=== PATIENT | female | born 1990 | race African-American/Black ===

== ENCOUNTER 2018-08-01 20:03 | Emergency (ER) | payer OTHER ==
[2018-08-01 20:27] VITALS: BP 123/61; PULSE 81; TEMP 98.1; BMI 27.4
--- NOTE | 2018-08-01 20:55 | PDOC ---
History of Present Illness - General Chief Complaint: Cold Symptoms Stated Complaint: COLD SYMPTOMS Time Seen by Provider: 08/01/18 20:29 History Source: Patient Exam Limitations: No Limitations - History of Present Illness Initial Comments: 08/01/18 20:51 27-year-old female presents to ED with complaints of right ear pain, sore throat , and nasal congestion for the past week. Patient states has been taking Claritin denies fever, chills, chest pain or shortness of breath. Patient denies smoking history and recent sick contacts. Timing/Duration: reports: week Severity: reports: mild Possible Cause: Yes: no prior episodes Associated Symptoms: reports: earache, nasal congestion, sore throat Past History - Travel Traveled outside of the country in the last 30 days: No - Past Medical History Allergies/Adverse Reactions: Allergies Allergy/AdvReac Type Severity Reaction Status Date / Time No Known Allergies Allergy Verified 08/01/18 20:27 Home Medications: Ambulatory Orders NK [No Known Home Medication] 08/01/18 Asthma: No Cancer: No Cardiac Disorders: No Diabetes: No HTN: No Seizures: No Thyroid Disease: No - Reproductive History (#): 2 Para: 0 Therapeutic (s) & number: Yes - Suicide/Smoking/Psychosocial Hx Smoking History: Never smoked Have you smoked in the past 12 months: No Information on smoking cessation initiated: No Hx Alcohol Use: No Drug/Substance Use Hx: No Hx Substance Use Treatment: No Patient Lives Alone: No Lives with/in: spouse/SO Review of Systems - Review of Systems Able to Perform ROS?: Yes Constitutional: No: Symptoms Reported HEENTM: Yes: Ear Pain, Nose Congestion, Throat Pain Respiratory: No: Symptoms reported Cardiac (ROS): No: Symptoms Reported ABD/GI: No: Symptoms Reported Musculoskeletal: No: Symptoms Reported Integumentary: No: Symptoms Reported Neurological: No: Symptoms reported *Physical Exam - Vital Signs Last Vital Signs Temp Pulse Resp BP Pulse Ox 98.1 F 81 16 123/61 100 08/01/18 20:25 08/01/18 20:25 08/01/18 20:25 08/01/18 20:25 08/01/18 20:25 - Physical Exam General Appearance: Yes: Nourished, Appropriately Dressed. No: Apparent Distress HEENT: positive: EOMI, FRANKI, Pharynx Normal, TM Erythema (right). negative: Pale Conjunctivae Neck: positive: Supple. negative: Lymphadenopathy (R), Lymphadenopathy (L) Respiratory/Chest: positive: Lungs Clear, Normal Breath Sounds. negative: Respiratory Distress, Accessory Muscle Use Cardiovascular: positive: Regular Rhythm, Regular Rate. negative: Murmur Integumentary: positive: Normal Color, Warm, Moist Neurologic: positive: Motor Strength 5/5 (ambulatory) Medical Decision Making - Medical Decision Making 08/01/18 20:53 Complaint: Nasal congestion, right ear pain and sore throat Exam: Right TM erythematous, lungs clear no posterior pharynx erythema Plan: Continue with Claritin and start amoxicillin for otitis media *DC/Admit/Observation/Transfer Diagnosis at time of Disposition: Otitis media - Discharge Dispostion Disposition: HOME Condition at time of disposition: Good - Referrals - Patient Instructions Printed Discharge Instructions: Middle Ear Infection Additional Instructions: Take Tylenol only for discomfort and continue Claritin. Please also start amoxicillin as prescribed. - Post Discharge Activity
== END 2018-08-01 21:10 | disposition home or self-care (01) ==
LOC: JERFT 20:03
DX: H66.91 Otitis media, unspecified, right ear (principal)
CPT/HCPCS: 99281-25

== ENCOUNTER 2018-08-25 22:55 | Emergency (ER) | payer SELFPAY ==
[2018-08-25 23:16] VITALS: BMI 27.5
[2018-08-26] MEDS ORDERED: ONDANSETRON 4 MG/2 ML VIAL IVPUSH ONE (00:21)
[2018-08-26] MEDS ORDERED: SODIUM CHLORIDE 1,000 ML IV STA (00:21)
[2018-08-26] MEDS ORDERED: PYRIDOXINE HCL (B-6) 50 MG TABLET (FP) PO ONE ×2 (00:30)
[2018-08-26] MEDS ORDERED: ONDANSETRON 4 MG/2 ML VIAL ONE (00:35)
--- NOTE | 2018-08-26 00:35 | PDOC ---
*Physical Exam - Vital Signs Last Vital Signs Temp Pulse Resp BP Pulse Ox 98.5 F 90 16 109/66 99 08/25/18 23:12 08/25/18 23:12 08/25/18 23:12 08/25/18 23:12 08/25/18 23:12 ED Treatment Course - LABORATORY CBC & Chemistry Diagram: 08/26/18 01:08 08/26/18 01:08 Medical Decision Making - Medical Decision Making 08/26/18 03:27 27F , 9weeks preg by dates here with 2 weeks of daily emesis, nbnb a/w diffuse abd px. No other complaints Agree with plan as documented by MODE 08/26/18 03:47 scant ketones in urine, pt eating and drinking in ED, asymptomatic safe for dc with close ob f/u *DC/Admit/Observation/Transfer Diagnosis at time of Disposition: Vomiting - Discharge Dispostion Disposition: HOME Condition at time of disposition: Improved Decision to Admit order: No - Prescriptions Prescriptions: Ondansetron [Zofran Odt -] 4 mg SL BID PRN #14 od.tablet PRN Reason: Nausea Pyridoxine HCl (B-6) [Vitamin B6] 25 mg PO TID #21 tablet - Referrals - Patient Instructions Printed Discharge Instructions: DI for Hyperemesis Gravidarum Additional Instructions: Thank you for choosing [facility]. It was a pleasure taking care of you. Take Zofran as needed for nausea/vomiting Take Vitamin B6 as well as that can also help with nausea. Be sure to follow-up with an TO[facility]ER for further care of your . Return to the Emergency Department if your symptoms worsen or persist, you have fever, shortness of breath, chest pain, severe abdominal pain, vomiting, unable to tolerate liquids, have vaginal bleeding or other concerning symptoms. - Post Discharge Activity
[2018-08-26 01:46] LABS: BASO % 0.3 % (0-2.0); EOS % 0.9 % (0-4.5); HEMATOCRIT 32.4 % (32.4-45.2); HEMOGLOBIN 11.2 GM/dL (10.7-15.3); LYMPH % 43.1 % (8-40); MCH 28.7 pg (25.7-33.7); MCHC 34.6 g/dl (32.0-36.0); MEAN CELL VOLUME 82.9 fl (80-96); MEAN PLT VOLUME 8.2 fl (7.5-11.1); NEUT % 50.7 % (42.8-82.8); PLATELET COUNT 297 K/MM3 (134-434); RBC 3.91 M/mm3 (3.60-5.2); RDW 14.4 % (11.6-15.6); WHITE BLOOD COUNT 7.3 K/mm3 (4.0-10.0)
--- NOTE | 2018-08-26 01:47 | PDOC ---
History of Present Illness - General Chief Complaint: Nausea/Vomiting Stated Complaint: VOMITTING, WEAKNESS, COUGH Time Seen by Provider: 08/25/18 23:44 History Source: Patient Exam Limitations: No Limitations Past History - Past Medical History Allergies/Adverse Reactions: Allergies Allergy/AdvReac Type Severity Reaction Status Date / Time No Known Allergies Allergy Verified 08/25/18 23:12 Home Medications: Ambulatory Orders Amoxicillin - [Amoxicillin 500mg Capsule -] 500 mg PO BID #14 capsule 08/01/18 Amoxicillin - [Amoxicillin 500mg Capsule -] 500 mg PO BID #14 capsule 08/01/18 Ondansetron [Zofran Odt -] 4 mg SL BID PRN #14 od.tablet 08/26/18 Pyridoxine HCl (B-6) [Vitamin B6] 25 mg PO TID #21 tablet 08/26/18 Asthma: No Cancer: No Cardiac Disorders: No COPD: No Diabetes: No HTN: No Seizures: No Thyroid Disease: No - Reproductive History (#): 2 Para: 0 Therapeutic (s) & number: Yes - Suicide/Smoking/Psychosocial Hx Smoking History: Never smoked Have you smoked in the past 12 months: No Hx Alcohol Use: No Drug/Substance Use Hx: No Hx Substance Use Treatment: No *Physical Exam - Vital Signs Last Vital Signs Temp Pulse Resp BP Pulse Ox 98.5 F 90 16 109/66 99 08/25/18 23:12 08/25/18 23:12 08/25/18 23:12 08/25/18 23:12 08/25/18 23:12 - Physical Exam General Appearance: No: Apparent Distress Respiratory/Chest: positive: Lungs Clear, Normal Breath Sounds. negative: Respiratory Distress Cardiovascular: positive: Regular Rhythm, Regular Rate, S1, S2. negative: Murmur Gastrointestinal/Abdominal: positive: Normal Bowel Sounds, Soft. negative: Tender, Distended, Guarding, Rebound Neurologic: positive: Fully Oriented, Alert, Normal Mood/Affect Moderate Sedation - Procedure Monitoring Vital Signs: Procedure Monitoring Vital Signs Temperature 98.5 F 08/25/18 23:12 Pulse Rate 90 08/25/18 23:12 Respiratory Rate 16 08/25/18 23:12 Blood Pressure 109/66 08/25/18 23:12 O2 Sat by Pulse Oximetry (%) 99 08/25/18 23:12 ED Treatment Course - LABORATORY CBC & Chemistry Diagram: 08/26/18 01:08 08/26/18 01:08 - RADIOLOGY Radiology Studies Ordered: Category Date Time Status TRANSVAGINAL US PREG [US] Stat Ultrasound 08/26/18 00:26 Taken - Medications Given in the ED: ED Medications Discontinued Medications Generic Name Dose Route Start Last Admin Trade Name Kane PRN Reason Stop Dose Admin Sodium Chloride 1,000 mls @ 1,000 mls/hr 08/26/18 00:21 08/26/18 01:26 Normal Saline - IV 08/26/18 01:20 1,000 mls/hr ASDIR STA Administration Ondansetron HCl 4 mg 08/26/18 00:21 08/26/18 01:01 Zofran Injection IVPUSH 08/26/18 00:22 4 mg ONCE ONE Administration Medical Decision Making - Medical Decision Making 27 y/o F (hx of 1 miscarriage), currently around 9 weeks 3 days ( [facility] 06/21/18) presents with NBNB emesis x 2 weeks (mentions having 3-4 episodes of emesis daily) along with generalized abdominal pain. Patient feels vomiting is worse than her usual morning sickness. Has not seen an [facility] ASSOCIATE doctor yet for her and found out she was via home test last month. Denies fever, sob, cp, diarrhea, urinary complaints, vaginal bleeding. Pelvic ultrasound: FINDINGS There is a single live intrauterine gestation with measurements corresponding to 10 weeks and 2 days. Yolk sac is visualized. heart rate is 165 beats per minute. No acute or sac abnormalities. Cervix measures 4.7 cm long and is closed. A 3.1 cm x 3.2 cm uterine fibroid is noted. 1.9 cm right ovarian cyst. Left ovary not visualized. Pelvic ultrasound shows IUP Consider hyperemesis gravidarum; reassuring that patient appears well hydrating on exam Plan: CBC, CMP, lipase, UA, Bhcg, IVF, Zofran, Vitamin B6, reassess 08/26/18 01:41 Labs reviewed and unremarkable. UA with 1+ ketones Patient assessed and had half a sandwich along with juice which she tolerated well She was monitored for some time and had no episode of emesis Patient mentions feeling better Will d/c on Zofran and Vitamin B6 08/26/18 03:47 *DC/Admit/Observation/Transfer Diagnosis at time of Disposition: Vomiting - Discharge Dispostion Disposition: HOME Condition at time of disposition: Improved Decision to Admit order: No - Prescriptions Prescriptions: Ondansetron [Zofran Odt -] 4 mg SL BID PRN #14 od.tablet PRN Reason: Nausea Pyridoxine HCl (B-6) [Vitamin B6] 25 mg PO TID #21 tablet - Referrals - Patient Instructions Printed Discharge Instructions: DI for Hyperemesis Gravidarum Additional Instructions: Thank you for choosing [facility]. It was a pleasure taking care of you. Take Zofran as needed for nausea/vomiting Take Vitamin B6 as well as that can also help with nausea. Be sure to follow-up with an FEEDER ASSOCIATE for further care of your . Return to the Emergency Department if your symptoms worsen or persist, you have fever, shortness of breath, chest pain, severe abdominal pain, vomiting, unable to tolerate liquids, have vaginal bleeding or other concerning symptoms. - Post Discharge Activity
[2018-08-26 02:35] LABS: ALBUMIN 3.6 g/dl (3.4-5.0); ALK PHOS 43 U/L (45-117); ANION GAP 10 MMOL/L (8-16); BILIRUBIN,TOTAL 0.2 mg/dL (0.2-1); BLOOD UREA NITROGEN 8 mg/dL (7-18); CALCIUM 8.3 mg/dL (8.5-10.1); CHLORIDE 105 mmol/L (98-107); CO2 21 mmol/L (21-32); CREATININE 0.5 mg/dL (0.55-1.3); GLUCOSE,RANDOM 88 mg/dL (74-106); LIPASE 136 U/L (73-393); POTASSIUM 3.8 mmol/L (3.5-5.1); SGOT/AST 10 U/L (15-37); SGPT/ALT 15 U/L (13-61); SODIUM 137 mmol/L (136-145); TOT PROT 7.4 g/dl (6.4-8.2)
[2018-08-26 03:32] LABS: URINE APPEARANCE CLEAR; URINE BILIRUBIN NEGATIVE (<2.0 mg/dL); URINE COLOR YELLOW; URINE GLUCOSE (UA) NEGATIVE (NEGATIVE); URINE KETONE 1+ (NEGATIVE); URINE LEUK ESTERASE NEGATIVE (NEGATIVE); URINE NITRITE NEGATIVE (NEGATIVE); URINE PROTEIN NEGATIVE (NEGATIVE); URINE UROBILINOGEN NEGATIVE mg/dL (0.2-1.0)
[2018-08-26 04:25] VITALS: BP 119/67; PULSE 72; TEMP 98.1
== END 2018-08-26 04:26 | disposition home or self-care (01) ==
LOC: JER 22:55
PROC: 3E033GC Introduction of Other Therapeutic Substance into Peripheral Vein, Percutaneous Approach (ICD-10-PCS; principal; 2018-08-25)
PROC: 3E0337Z Introduction of Electrolytic and Water Balance Substance into Peripheral Vein, Percutaneous Approach (ICD-10-PCS; 2018-08-25)
DX: O26.891 Other specified pregnancy related conditions, first trimester (principal); Z3A.09 9 weeks gestation of pregnancy; R11.10 Vomiting, unspecified
CPT/HCPCS: 36415; 76817-TC; 80053; 81003; 83690; 84702; 85025; 96361; 96374; 99282-25; J7030